=== PATIENT | female | born 1960 | race Caucasian/White ===

== ENCOUNTER 2025-04-21 12:43 | Outpatient (CLI) | payer MEDICARE, MEDICAID ==
--- NOTE | 2025-04-21 14:14 | RADIOLOGY REPORT ---
INDICATION: POSTMENOPAUSAL BLEEDING TECHNIQUE: Multiple real-time grayscale transabdominal and transvaginal sonographic images along with color and duplex Doppler of the uterus and ovaries were obtained. COMPARISON: None FINDINGS: The uterus measures 7.2 x 3.2 x 4.4 cm. The endometrium measures 0.4 cm. The uterus is het erogeneous. Bilateral ovaries not well visualized due to obscuration from bowel gas. IMPRESSION: Heterogeneous uterus. Normal endometrium measures 0.4 cm.
== END 2025-04-21 23:59 | disposition home or self-care (01) ==
LOC: RAD 12:43
PROVIDERS: ATTEND Physician Assistant
DX: N95.0 Postmenopausal bleeding (principal)
CPT/HCPCS: 76830; 76856